=== PATIENT | male | born 1980 | race African-American/Black ===

== ENCOUNTER 2016-12-01 22:15 | Emergency (ER) | payer BC ==
[~2016-12-01] VITALS: Ht 188 cm; Wt 108.4 kg
[2016-12-01 22:58] LABS: ADD MIUA? YES; BILIRUBIN NEGATIVE; BLOOD LARGE; COLOR YELLOW ((YELLOW)); GLUCOSE (STRIP) NEGATIVE; KETONES NEGATIVE; LEUKOCYTES NEGATIVE; NITRITE NEGATIVE; PROTEIN (STRIP) 100; SPECIFIC GRAVITY 1.015 (1.000-1.030); UROBILINOGEN 0.2 MG/DL (0.2-1.0)
[2016-12-01 23:03] LABS: BACTERIA RARE /HPF; EPITHELIAL CELLS NONE SEEN /HPF; HYALINE CASTS 0-5 /LPF; MUCUS 2+ /LPF; RED BLOOD CELLS TNTC /HPF (0-5); UCUL ADDED? NO; UNCLASSIFIED CRYSTALS 2+ /HPF
[2016-12-01 23:07] LABS: HEMATOCRIT 45.4 % (38.0-50.0); MCH 27.2 PG (29.0-34.0); MCHC 34.8 G/DL (30.0-36.0); MCV 78.3 FL (86-99); MEAN PLAT.VOLUME 10.3 uM^3 (9.0-12.4); PLATELET COUNT 265 K/uL (156-360); RBC DIS.WIDTH-CV 13.6 % (11.8-14.6); RBC DIS.WIDTH-SD 38.2 % (39-53); WHITE BLOOD COUNT 11.4 K/uL (4.1-10.2)
[2016-12-01 23:13] LABS: CHLORIDE 106 mEq/L (99-109); POTASSIUM 3.8 mEq/L (3.7-5.4); SODIUM 139 mEq/L (136-147)
[2016-12-01 23:15] LABS: GLUCOSE 111 mg/dL (70-99)
[2016-12-01 23:16] LABS: ANION GAP 10 MEQ/L (2-14)
[2016-12-01 23:19] LABS: GFR ESTIMATE (CALCULATED) > 59 mL/min/
[2016-12-01 23:20] LABS: UREA NITROGEN (BUN) 14 mg/dL (9-23)
[2016-12-01] MEDS ORDERED: PERCOCET 5/31 TABLET PO (23:27)
[2016-12-01] MEDS ORDERED: ZOFRAN4 MG PO (23:27)
[2016-12-01] MEDS ORDERED: TORADOL10 MG PO (23:27)
[2016-12-01 23:43] VITALS: BP 137/93
== END 2016-12-01 23:44 | disposition home or self-care (01) ==
LOC: EME 22:15
DX: N20.1 Calculus of ureter (principal); F17.200 Nicotine dependence, unspecified, uncomplicated
CPT/HCPCS: 74176; 80048; 81003; 85027; 99281; 99284; J1885